=== PATIENT | male | born 1950 | race Caucasian/White ===

== ENCOUNTER 2017-12-19 15:04 | Emergency (ER) | payer SELFPAY ==
[2017-12-19] MEDS: LIDOCAINE 1% (MDV) 10 ML INJ INFIL (16:03)
== END 2017-12-19 17:57 | disposition home or self-care (01) ==
LOC: FTE 15:04
DX: S51.012A Laceration without foreign body of left elbow, initial encounter (principal); W11.XXXA Fall on and from ladder, initial encounter; Y92.9 Unspecified place or not applicable
CPT/HCPCS: 12002; 73080-LT; 99283-25

== ENCOUNTER 2017-12-30 18:36 | Emergency (ER) | payer SELFPAY | END 2017-12-30 18:59 | disposition home or self-care (01) | LOC: E/R 18:36 | DX: Z48.02 Encounter for removal of sutures (principal) | CPT/HCPCS: 99281 ==